=== PATIENT | female | born 1985 | race Caucasian/White ===

== ENCOUNTER 2019-06-21 15:44 | Emergency (ER) | payer SELFPAY | END 2019-06-21 16:07 | disposition left against medical advice (07) | LOC: ER 15:44 | DX: Z53.21 Procedure and treatment not carried out due to patient leaving prior to being seen by health care provider (principal) | CPT/HCPCS: 99281 ==

== ENCOUNTER 2019-10-21 19:39 | Emergency (ER) | payer SELFPAY ==
--- NOTE | 2019-10-21 19:57 | Emergency Department Record ---
History of Present Illness - General Chief Complaint: Chest Pain Stated Complaint: CHEST PAIN Time Seen by Provider: 10/21/19 19:52 Source: Patient Mode of Arrival: Ambulatory Limitations: No limitations - History of Present Illness Initial Comments: The patient is here due to anterior chest pain for 3 days. She states the pain is sharp and stabbing and worse with any movement and deep breathing. She has had intermittent SOB at times but no nausea or sweating or cough or fever. 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 She did get better after taking Doxycycline for 2 weeks in May but now her symptoms have returned over the last 4 weeks. She has been having intermittent paresthesias and aching of her arms and legs with intermittent leg swelling. Her only cardiac risk factor is tobacco use. MD Complaint: Chest pain Onset/Timin -: Days(s) Improves With: Medication-other, Rest Worsens With: Movement Anginal Symptoms: Dyspnea Treatments Prior to Arrival: Aspirin - Related Data Home Medications Medication Instructions Recorded Confirmed Last Taken Cyclobenzaprine HCl [Flexeril] 1 tab PO Q8HR PRN 10/21/19 10/21/19 Unknown Previous Rx's Medication Instructions Recorded Naproxen [Naprosyn] 500 mg PO BID #14 tablet. 10/21/19 Allergies Allergy/AdvReac Type Severity Reaction Status Date / Time No Known Drug Allergies Allergy Verified 10/21/19 19:54 Travel Screening - Travel/Exposure Within Last 30 Days Have you traveled within the last 30 days?: No - Travel/Exposure Within Last Year Have you traveled outside the [place] in the last year?: No - Additonal Travel Details Have you been exposed to anyone with a communicable illness?: No - Travel Symptoms Symptom Screening: None Review of Systems Constitutional: Denies: Chills, Fever Eyes: Denies: Eye discharge ENT: Denies: Congestion Respiratory: Denies: Cough, Dyspnea Cardiovascular: Reports: Chest pain Endocrine: Reports: Fatigue Gastrointestinal: Denies: Nausea Genitourinary: Denies: Dysuria Musculoskeletal: Denies: Arthralgia Neurological: Denies: Abnormal gait Past Medical History - SOCIAL HISTORY Smoking Status: Current some day smoker Alcohol Use: Occasional Drug Use Detail:: Marijuana - RESPIRATORY Hx Respiratory Disorders: No - CARDIOVASCULAR Hx Cardio Disorders: No - NEURO Hx Neuro Disorders: No - GI Hx GI Disorders: No - Hx Genitourinary Disorders: No - ENDOCRINE Hx Endocrine Disorders: No - MUSCULOSKELETAL Hx Musculoskeletal Disorders: No - PSYCH Hx Psych Problems: No - HEMATOLOGY/ONCOLOGY Hx Hematology/Oncology Disorders: No Family Medical History Any Significant Family History?: No Family Hx Comment (NOT TO BE USED IN PLACE OF ITEMS BELOW): Denies Physical Exam - General General Appearance: Alert, Oriented x3, Cooperative, No acute distress - Head Head exam: Atraumatic, Normocephalic, Normal inspection - Eye Eye exam: Normal appearance, PERRL, EOMI. negative: Conjunctival injection - ENT Throat exam: Normal inspection. negative: Tonsillar erythema, Tonsillar exudate - Neck Neck exam: Normal inspection, Full ROM. negative: Tenderness - Respiratory Respiratory exam: Normal lung sounds bilaterally, Chest wall tenderness (The anterior chest pain is 100% reproducible to palpation and chest stretching and arm extension.). negative: Respiratory distress - Cardiovascular Cardiovascular Exam: Regular rate, Normal rhythm, Normal heart sounds - GI/Abdominal GI/Abdominal exam: Soft, Normal bowel sounds. negative: Tenderness - Extremities Extremities exam: Normal inspection, Full ROM, Normal capillary refill. negative: Calf tenderness, Pedal edema, Tenderness Image of Full Body: 1 - Area of pain and 100% reproducible tenderness. - Neurological Neurological exam: Alert. negative: Motor sensory deficit Course Vital Signs 10/21/19 19:42 Temperature 98.5 F Pulse Rate [ 74 Pulse Ox Probe] Respiratory 20 Rate Blood Pressure 166/103 [Left Arm] Pulse Ox 96 - Reevaluation(s) Reevaluation #1: The patient is doing better after the Ofirmiv and Toradol but is now very anxious and worked up due to the illness she has had for 5 months. She is crying and very histrionic and clearly there is an anxiety component to her illness. Her PCP has discussed starting her on Cymbalta but she has been resistent to that. I did explain to her that her evaluation is normal relating to any cardiac or pulmonary cause for the pain. I also did do an ESR and CRP and they are normal also. On re-examination the pain is again 100% reproducible with ANY palpation of the anterior chest wall and with chest stretching exercises. I do feel she is stable for discharge due to having a HEART Score of 1 and a neg D- dimer. She is to F/U with her PCP this week for recheck. 10/21/19 21:05 Medical Decision Making - Data Complexity MDM Data: Labs Ordered and/or Reviewed, X-Ray Ordered and/or Reviewed, EKG Ordered and/or Reviewed - Lab Data Result diagrams: 10/21/19 19:56 10/21/19 19:56 - EKG Data -: EKG Interpreted by Me EKG: No Acute Changes (RsR' V1-2, O/W neg.) - Radiology Data Radiology results: Report reviewed (CXR:Neg.) Disposition Disposition: Discharge Clinical Impression: Chest wall pain, Anxiety Disposition: Home, Self-Care Condition: (2) Stable Instructions: Noncardiac Chest Pain (ED) Additional Instructions: Please take the Ativan for anxiety and take the Naprosyn for pain. Please see your family doctor for recheck this week. Return to the ER for any worsening symptoms. Prescriptions: Naproxen [Naprosyn] 500 mg PO BID #14 tablet.dr Forms: Patient Portal Access Time of Disposition: 21:12 Quality - Quality Measures Quality Measures: N/A - Blood Pressure Screening View Details: Yes Does Patient Have Any of the Following: No Blood Pressure Classification: Pre-Hypertensive BP Reading Systolic Measurement: 134 Diastolic Measurement: 81 Screening for High Blood Pressure: < Pre-Hypertensive BP, F/U Documented > [G8950] Pre-Hypertensive Follow-up Interventions: Referral to alternative/primary care provider.
[2019-10-21] MEDS ORDERED: ACETAMINOPHEN 1,000 MG/100 ML BTL IVPB ONE (20:07)
[2019-10-21 20:15] LABS: ABSOLUTE NEUTROPHIL COUNT 4.34; BASO % 0.1 % (0-6); EOS % 0.1 % (0-6); GRAN % 60.3 % (47-80); HEMATOCRIT 42.4 % (35.0-47.0); HEMOGLOBIN 13.9 gm/dl (11.6-16.0); LYMPH % 30.3 % (16-45); MEAN CELL VOLUME 85.7 fl (81-97); MEAN CORPUSCULAR HEMOGLOBIN 28.1 pg (27-33); MEAN CORPUSCULAR HGB CONC 32.8 g/dl (32-36); MEAN PLATELET VOLUME 9.8 fl (7.4-10.4); MONO % 9.2 % (0-9); PLATELET COUNT 361 K/uL (130-400); RED BLOOD COUNT 4.95 M/uL (3.80-5.40); RED CELL DISTRIBUTION WIDTH 13.2 % (11.5-14.5); WHITE BLOOD COUNT W/O DIFF 7.2 K/uL (4.2-12.2)
[2019-10-21 20:24] LABS: BLOOD UREA NITROGEN 8 mg/dL (6-20); CREATININE 0.6 mg/dL (0.5-0.9); EST GLOMERULAR FILTRATION RATE > 60 mL/min
[2019-10-21 20:25] LABS: TOTAL PROTEIN 7.4 g/dL (6.6-8.7)
[2019-10-21 20:27] LABS: GLUCOSE,RANDOM 94 mg/dL (74-109)
[2019-10-21 20:30] LABS: ALBUMIN 4.9 g/dL (4.0-5.0); ALKALINE PHOSPHATASE 60 U/L (35-104); ALT/SGPT 14 U/L (<33); AST/SGOT 16 U/L (10.0-35.0)
--- NOTE | 2019-10-21 20:33 | RADIOLOGY REPORT ---
EXAMINATION: Two View Chest Radiographs EXAM DATE: 10/21/2019 8:29 PM TECHNIQUE: Frontal and lateral views INDICATION: anterior chest pain. COMPARISON: None ENCOUNTER: Not applicable FINDINGS: The heart, mediastinum, and pulmonary vasculature are normal. No lung consolidation or pleural effu sions are present. Osteopenia. No displaced rib fractures. IMPRESSION: No acute cardiopulmonary disease is present. Dictated by: Channing Tran MD on 10/21/2019 8:31 PM. .
[2019-10-21] MEDS ORDERED: KETOROLAC 30 MG/ML VIAL IVP ONE (20:36)
[2019-10-21] MEDS ORDERED: KETOROLAC 30 MG/ML VIAL IM ONE (20:39)
[2019-10-21] MEDS ORDERED: LORAZEPAM 0.5 MG TABLET PO ONE (21:09)
== END 2019-10-21 21:35 | disposition home or self-care (01) ==
LOC: ER 19:39
DX: R07.89 Other chest pain (principal); R06.02 Shortness of breath; F41.9 Anxiety disorder, unspecified; F17.210 Nicotine dependence, cigarettes, uncomplicated
CPT/HCPCS: 99284 ×2; 96374; 96372; 96375; 85025; 85651; 86140; 80053; 84703; 84484; 85379; 71046; 93005; 93010; J1885